=== PATIENT | male | born 1945 | race Caucasian/White ===

== ENCOUNTER 2017-08-10 06:38 | Day surgery (SDC) | payer OTHER, MEDICARE ==
[2017-08-08 13:51] VITALS: BMI 26.4
[2017-08-10] MEDS ORDERED: PROPOFOL 20 ML ONE (07:32)
[2017-08-10] MEDS ORDERED: SUCCINYLCHOLINE CHLORIDE 200 MG/10 ML VIAL ONE (07:32)
[2017-08-10] MEDS ORDERED: LIDOCAINE HCL/PF 2% SDV 5ML VIAL ONE (07:32)
[2017-08-10] MEDS ORDERED: DEXAMETHASONE SOD PHOSPHATE 4 MG/1 ML VIAL ONE (07:32)
[2017-08-10] MEDS ORDERED: MIDAZOLAM HCL 2 MG/2 ML SINGLE DOSE VIAL ONE (07:32)
[2017-08-10] MEDS ORDERED: ePHEDrine SULFATE 50 MG/1 ML AMPULE ONE (07:32)
[2017-08-10] MEDS ORDERED: BUPIVACAINE HCL/PF 0.5% (5MG/ML) 10 ML VIAL ONE (07:33)
[2017-08-10] MEDS ORDERED: SODIUM CHLORIDE 0.9% P/F 10 ML VIAL IJ ONE (07:48)
[2017-08-10] MEDS ORDERED: CLINDAMYCIN 600 MG PREMIX BAG IVPB ONE (08:10)
[2017-08-10] MEDS ORDERED: KETOROLAC TROMETHAMINE 30 MG/1 ML VIAL ONE (08:26)
[2017-08-10] MEDS ORDERED: BUPIVACAINE HCL/PF (5 MG/ML) 30 ML VIAL IJ ONE (08:34)
[2017-08-10] MEDS ORDERED: LIDOCAINE HCL 1%, 10 MG/ML (20ML VIAL) PNB ONE (08:34)
--- NOTE | 2017-08-10 08:51 | OP ---
Operative Note - Note: Operative Date: 08/10/17 Pre-Operative Diagnosis: right index finger trigger finger Operation: right index finger trigger finger release Post-Operative Diagnosis: Same as Pre-op Surgeon: Shashank Campbell Anesthesiologist/TECHNICAL STAFF ENGINEER: Black Cain Anesthesia: Local, MAC Estimated Blood Loss (mls): 0 Drains, Volume Out (mls): 0 Blood Volume Replaced (mls): 0 Fluid Volume Replaced (mls): 500 Operative Report Dictated: Yes
--- NOTE | 2017-08-10 08:52 | HP ---
Satellite [facility] - Chief Complaint Chief Complaint: right index finger pain History of Present Illness: right index trigger finger History Source: Patient Limitations to Obtaining History: No Limitations - Past Medical History Allergies/Adverse Reactions: Allergies Allergy/AdvReac Type Severity Reaction Status Date / Time amoxicillin AdvReac Intermediate Verified 08/08/17 13:42 ciprofloxacin HCl AdvReac Intermediate Verified 08/08/17 13:42 [From Cipro] - Current Medications Current Medications: Home Medications Medication Instructions Recorded Lisinopril 10 mg PO DAILY 08/08/17 Lovastatin 40 mg PO DAILY 08/08/17 Omeprazole 10 mg PO DAILY 08/08/17 Satellite Physical Exam - Physical Examination Vital Signs: Vital Signs Period Temp Pulse Resp BP Sys/Truong Pulse Ox Last 24 Hr 97.9 F 76 20 118/74 98 General Appearance: Well Nourished ENT: Clear Lung: Clear to auscultation Heart: Regular rate & rhythm Breasts: Soft Abdomen: Soft Extremities: No edema Satellite Impression/Plan - Impression/Plan Impression: right index trigger finger Operative Procedure: right index finger trigger finger release Date to be Performed: 08/10/17
[2017-08-10] MEDS ORDERED: oxyCODONE HCL 5 MG TABLET PO PRN (09:06)
[2017-08-10] MEDS ORDERED: ONDANSETRON 4 MG/2 ML VIAL IVPUSH PRN (09:06)
[2017-08-10] MEDS ORDERED: LACTATED RINGERS SOLUTION 1,000 ML IV SCH (09:15)
[2017-08-10 09:50] VITALS: TEMP 97.9
[2017-08-10 11:10] VITALS: BP 127/72; PULSE 69
--- NOTE | 2017-08-10 22:00 | SPEC ---
DATE OF OPERATION: 08/10/2017 PRE-OP DIAGNOSIS: Right index finger trigger finger. POSTOP DIAGNOSIS: Right index finger trigger finger. SURGEON: Sara Lee M.D. COUNTER WAITRESS/WAITER: None. ANESTHESIOLOGIST: Black Cain CRNA ANESTHESIA: MAC anesthesia with local injection 8 mL of 0.5% Marcaine and 1% Lidocaine mix. OPERATION: Right index finger trigger release and tendon sheath excision. DRAINS: None. COMPLICATIONS: None. SPECIMEN: None. BLOOD LOSS: None. BLOOD GIVEN: None. FLUID REPLACEMENT: 500 mL Plasmalyte. INDICATIONS: This patient is a 71-year-old male with the preoperative diagnosis of recurrent severe right index finger trigger finger. After understanding the potential risks, complications, benefits, alternatives, benefits of the surgery vs. non-surgical treatment, the patient elected to undergo this procedure. PROCEDURE: The patient was brought to the operating room, IV was placed, IV sedation was given. 600 mg of clindamycin was given. A tourniquet was applied to the right upper arm and the right upper extremity was prepped and draped in sterile fashion. The entire case was done under 3.8 loupe magnification. A marking pen was utilized to nori out a longitudinal incision in an already existing skin crease at the base of the right index finger. Then 10 mL of 0.5% Marcaine mixed with 1% Lidocaine was injected in and around the incision. The right upper extremity was elevated, exsanguinated with an Esmarch bandage and the tourniquet inflated to 250 mmHg. A No. 15 scalpel blade was utilized to cut down through the skin. Subcutaneous hemostasis was achieved with the bipolar cautery. Additional dissection was done with Littler scissors until I was able to directly visualize the A1 shyam sheath in its entirety. Self-retaining retractors were placed into the wound. A free air elevator was used to free up the tissue on the radial side, the ulnar side distally and proximally under better visualization of A1 shyam sheath. Next, using a fresh No. 15 scalpel blade, I excised the central one-third of the A1 shyam sheath and passed it off the field as specimen, tendon sheath, right index finger. I then completed the release, both distally and proximally, and brought the FDS and FDP tendons out through the wound with a Ragnell retractor. There were no abnormal points of compression. I was able to move the right index finger without the tendons bunching up at all. The area was then copiously irrigated and washed out. I then checked one more time to make sure there were no abnormal points of compression. None were seen and therefore closure was begun. One stitch using 4-0 Vicryl was used in the deep dermal layer. Skin was reapproximated with 4-0 Nylon sutures in a horizontal mattress fashion. The area was then washed and dried, covered with Xeroform gauze, sterile 4x4s, fluffs between the fingers, Webril and Coban. The tourniquet was taken down after a total tourniquet time of 10 minutes. There were no complications during the case. The patient tolerated the procedure well and was brought to the Ambulatory recovery Room in stable condition. SARA LEE M.D. [id number]
== END 2017-08-10 11:10 | disposition home or self-care (01) ==
LOC: JASU-SURG 06:38
PROVIDERS: ATTEND Orthopaedic Surgery
PROC: 0LN70ZZ Release Right Hand Tendon, Open Approach (ICD-10-PCS; principal; 2017-08-10 08:00)
DX: M65.321 Trigger finger, right index finger (principal); Z88.1 Allergy status to other antibiotic agents
CPT/HCPCS: 94760